=== PATIENT | male | born 1960 | race Caucasian/White ===

== ENCOUNTER 2018-03-04 11:43 | Outpatient (CLI) | payer BC ==
--- NOTE | 2018-03-04 12:29 | RAD ---
TWO VIEWS CHEST: History: Cough and congestion. FINDINGS: Two views of the chest show normal sized cardiomediastinal silhouette. There is no evidence of consol idation, mass, or pleural effusion. The bones are unremarkable. IMPRESSION: No evidence of acute cardiopulmonary disease. POS: [facility]
== END 2018-03-04 11:44 | disposition home or self-care (01) ==
LOC: MADRAD 11:43
PROVIDERS: ATTEND Family Medicine
DX: R05 Cough (principal)
CPT/HCPCS: 71046